=== PATIENT | female | born 1985 | race African-American/Black ===

== ENCOUNTER 2018-06-06 12:59 | Emergency (ER) | payer OTHER ==
[~2018-06-06] VITALS: Ht 165.1 cm; Wt 68.0 kg
[2018-06-06 13:04] VITALS: Ht 165.1 cm; Wt 68.0 kg
[2018-06-06 14:11] VITALS: BP 122/73
== END 2018-06-06 14:11 | disposition home or self-care (01) ==
LOC: ED 12:59
DX: J06.9 Acute upper respiratory infection, unspecified (principal); Z86.2 Personal history of diseases of the blood and blood-forming organs and certain disorders involving the immune mechanism